=== PATIENT | male | born 2000 | race African-American/Black ===

== ENCOUNTER 2018-06-19 20:35 | Emergency (ER) | payer SELFPAY ==
[2018-06-19 20:52] VITALS: BP 119/68
[2018-06-19] MEDS ORDERED: IBUPROFEN 600 MG TABLET PO ONE (21:36)
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
== END 2018-06-19 23:25 | disposition home or self-care (01) ==
LOC: ER 20:35
DX: J02.9 Acute pharyngitis, unspecified (principal); H92.01 Otalgia, right ear; R51 Headache; R07.9 Chest pain, unspecified; F17.200 Nicotine dependence, unspecified, uncomplicated; R59.0 Localized enlarged lymph nodes
CPT/HCPCS: 87070; 87880; 99283

== ENCOUNTER 2018-10-18 15:41 | Emergency (ER) | payer OTHER ==
[2018-10-18] MEDS ORDERED: CEFTRIAXONE INJ 250 MG VIAL IM ONE (16:16)
[2018-10-18] MEDS ORDERED: PROMETHAZINE HCL 25 MG TABLET PO ONE (16:16)
[2018-10-18] MEDS ORDERED: PENICILLIN G BENZATHINE 1.2 MILLION UNIT/2 ML DISP.SYRIN IM ONE (16:16)
[2018-10-18] MEDS ORDERED: AZITHROMYCIN 250 MG TABLET PO ONE (16:17)
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
[2018-10-18] MEDS ORDERED: METRONIDAZOLE 500 MG TABLET PO ONE (16:19)
[2018-10-18 16:23] LABS: APPEARANCE,URINE CLOUDY; BILIRUBIN,URINE NEGATIVE (NEGATIVE); COLOR,URINE YELLOW; GLUCOSE, URINE NEGATIVE (NEGATIVE); KETONES,URINE NEGATIVE (NEGATIVE); LEUKOCYTE ESTERASE,URINE LARGE (NEGATIVE); NITRITE,URINE NEGATIVE (NEGATIVE); PROTEIN,URINE 100 mg/dL (NEGATIVE); URINE SPECIFIC GRAVITY 1.016; UROBILINOGEN,URINE NEGATIVE mg/dL (<2.0)
[2018-10-18] MEDS ORDERED: LIDOCAINE 1% INJ-PF (10 MG/ML) 30 ML SDV ONE (16:56)
[2018-10-18 17:55] LABS: CHLAM PCR NOT DETECTED (NOT DETECT); GON PCR NOT DETECTED (NOT DETECT)
[2018-10-18 18:30] VITALS: BP 115/75
[2018-10-19 09:54] LABS: RAPID PLASMA REAGIN REACTIVE 1:4 (NONREACTIVE)
== END 2018-10-18 18:07 | disposition home or self-care (01) ==
LOC: ER 15:41
DX: N39.0 Urinary tract infection, site not specified (principal); R31.9 Hematuria, unspecified; Z20.2 Contact with and (suspected) exposure to infections with a predominantly sexual mode of transmission; F17.200 Nicotine dependence, unspecified, uncomplicated
CPT/HCPCS: 99283; 96372; 36415; 87086; 87088; 86592; 81001; 86701; 87186; 87491; 87591; J3490; J0561; J0696